=== PATIENT | female | born 1990 | race Caucasian/White ===

== ENCOUNTER 2017-09-29 12:33 | Emergency (ER) | payer OTHER ==
[2017-09-29 13:07] VITALS: BP 127/83
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
== END 2017-09-29 14:53 | disposition home or self-care (01) ==
LOC: LB.ED 12:33
DX: O99.89 Other specified diseases and conditions complicating pregnancy, childbirth and the puerperium (principal); Z88.5 Allergy status to narcotic agent; R10.31 Right lower quadrant pain; Z3A.08 8 weeks gestation of pregnancy
CPT/HCPCS: 36415; 80053; 81001; 84703; 85025; 99284

== ENCOUNTER 2021-07-14 21:20 | Emergency (ER) | payer MEDICAID, OTHER ==
[2021-07-14 21:28] VITALS: PULSE 84
[2021-07-14 21:46] VITALS: BP 150/88
[2021-07-14] MEDS ORDERED: Amoxicillin 500 MG Cap ONE (22:00)
== END 2021-07-14 22:14 | disposition home or self-care (01) ==
LOC: LB.ED 21:20
DX: H60.501 Unspecified acute noninfective otitis externa, right ear (principal); H65.111 Acute and subacute allergic otitis media (mucoid) (sanguinous) (serous), right ear; Z88.5 Allergy status to narcotic agent; Z88.8 Allergy status to other drugs, medicaments and biological substances
CPT/HCPCS: 99282; A9270